=== PATIENT | male | born 1960 | race Caucasian/White ===

== ENCOUNTER → 2020-10-25 | Outpatient (CLI) | payer OTHER | LOC: CT 08:30 | DX: J30.9 Allergic rhinitis, unspecified (principal); M19.90 Unspecified osteoarthritis, unspecified site; I25.10 Atherosclerotic heart disease of native coronary artery without angina pectoris; R91.1 Solitary pulmonary nodule; R94.2 Abnormal results of pulmonary function studies; Z72.0 Tobacco use | CPT/HCPCS: 71250; 94060; 94729 ==